=== PATIENT | male | born 1990 | race Hispanic/Latino ===

== ENCOUNTER 2016-07-12 11:50 | Emergency (ER) | payer OTHER ==
[2016-07-12] MEDS ORDERED: ONDANSETRON 4 MG ORAL DISINTEGRATING TAB (S0181) As Ordered ONE (12:08)
[2016-07-12] MEDS ORDERED: NORCO, ANEXSIA 5/325MG TABLET (HYDROcodone/ACETAMINOPHEN) As Ordered ONE (12:08)
--- NOTE | 2016-07-12 12:33 | REP ---
Clinical: Trauma. Technique: Internal rotation, external rotation. Findings: Midclavicular shaft fracture with displacement and foreshortening. The acromioclavicular and glenohumeral joints appear intact. Impression: Mid clavicular shaft fracture. Signed by Norman Crandall MD 07/12/2016 12:24 P
--- NOTE | 2016-07-12 12:46 | EDDOCDS ---
Physician Documentation [facility] Name: Dev Corey Age: 25 yrs Sex: Male : 1990 Arrival Date: 07/12/2016 Time: 11:50 Bed TR8 Private MD: Jim [facility] Disposition: 07/12/16 12:30 Discharged to Home/Self Care. Impression: Fracture of clavicle - Acute Closed, Initial encounter. - Condition is Stable. - Discharge Instructions: Clavicle Fracture. - Prescriptions for Ibuprofen 600 mg Oral Tablet - take 1 tablet by ORAL route every 6 hours As needed take with food; 30 tablet. [place] 5- 325 mg Oral Tablet - take 1 tablet by ORAL route every 6 hours As needed MDD: 4 tabs; 20 tablet. - Medication Reconciliation, Local Pharmacy Hours form. - Follow up: Shelia Castillo [facility]; When: 1 - 2 days; Reason: Continuance of care. Follow up: Emergency Department; When: As needed; Reason: Worsening of conditions. - Problem is new. - Symptoms have improved. Historical: - Allergies: no known allergies; - Home Meds: 1. none - PMHx: none; - PSHx: none; - Social history: Smoking status: Patient states was never smoker of tobacco. No barriers to communication noted, The patient speaks fluent Latvian, Speaks appropriately for age. - Family history: Not pertinent. - : The pt / caregiver states he / she is not on anticoagulants. Home medication list is obtained from the patient. - Exposure Risk Screening:: None identified. Vital Signs: 07/12 11:51 BP 164 / 75; Pulse 75; Resp 18; Temp 98.1(O); Pulse Ox 98% on R/A; Weight 81.65 kg / lr2 180.01 lbs (R); Height 5 ft. 9 in. (175.26 cm) (R); Pain 10/10; 12:39 BP 138 / 88; Pulse 68; Resp 18; Temp 98.5(O); Pulse Ox 96% on R/A; Pain 9/10; dem1 11:51 Body Mass Index 26.58 (81.65 kg, 175.26 cm) lr2 MDM: 12:06 HYDROcodone-acetaminophen 5 mg-325 mg 2 tabs PO once ordered. dk1 12:06 Ondansetron 4 mg PO once ordered. dk1 12:07 Shoulder, Complete Ordered. EDMS 12:07 NOTHING BY MOUTH+DIET ordered. EDMS 12:10 HYDROcodone-acetaminophen 5 mg-325 mg 2 tabs PO once ordered. ms18 12:21 Sling ordered. dk1 12:27 Financial registration complete. lg Administered Medications: 12:11 Drug: HYDROcodone-acetaminophen 2 tabs [hydrocodone 5 mg-acetaminophen 325 mg tablet (2 ms18 tabs)] Route: PO; 12:11 Drug: Ondansetron 4 mg [ondansetron HCl 4 mg tablet (1 tabs)] Route: PO; ms18 Signatures: Dispatcher MedHost EDMS Raquel Lujan, Reg Reg lg Dilan Lal, ELOISE PAChivo dk1 Maria L Martini,LASHAWN RN rs3 Karissa Pandey RN RN ms18 Lorrie Cuello,RN RN kc3 MTDD
--- NOTE | 2016-07-12 12:46 | EDDOCDS ---
Nurse's Notes [facility] Name: Dev Corey Age: 25 yrs Sex: Male : 1990 Arrival Date: 07/12/2016 Time: 11:50 Bed TR8 Private MD: Jim [facility] [place] Diagnosis: Fracture of clavicle-Acute Closed, Initial encounter Presentation: 07/12 11:57 Presenting complaint: Patient states: injury to right shoulder and collarbone while kc3 playing basketball after running into another player. Pt reports " I heard something crack.". Adult Sepsis Screening: The patient does not have new or worsening altered mentation. Patient's respiratory rate is less than 22. Systolic blood pressure is greater than 100. Patient has a qSOFA score of 0- Negative Sepsis Screen. Suicide/Homicide risk assessment- the patient denies having any suicidal and/or homicidal ideations and does not present with any other emotional, behavioral or mental health complaints. 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 Transition of care: patient was not received from another setting of care. 11:57 Acuity: BOLIVAR Level 3 kc3 11:57 Method Of Arrival: Walkin/Carried/Asstd kc3 Triage Assessment: 11:59 General: Appears uncomfortable, Behavior is appropriate for age, cooperative. Pain: kc3 Location: right clavicle and right shoulder Pain currently is 10 out of 10 on a pain scale. Pt Declines HIV testing. Respiratory: Respiratory effort is even, unlabored. Derm: Skin is pink, warm & dry. Musculoskeletal: Range of motion limited in right shoulder Reports pain in right shoulder. Historical: - Allergies: no known allergies; - Home Meds: 1. none - PMHx: none; - PSHx: none; - Social history: Smoking status: Patient states was never smoker of tobacco. No barriers to communication noted, The patient speaks fluent Filipino, Speaks appropriately for age. - Family history: Not pertinent. - : The pt / caregiver states he / she is not on anticoagulants. Home medication list is obtained from the patient. - Exposure Risk Screening:: None identified. Screenin:42 Screening information is obtained from the patient. Fall risk: No risks identified. rs3 Assistance ADL's: requires no assistance with activities of daily living. Abuse/DV Screen: The patient / caregiver reports he/she is: not in a situation that causes fear, pain or injury. There is an injury present, No other injuries are noted. Nutritional screening: No deficits noted. Advance Directives: Currently, there is no health care proxy. home support is adequate. Assessment: 12:42 General: Appears in no apparent distress, Behavior is appropriate for age, cooperative. rs3 Pain: Location: right shoulder. Neurological: Level of Consciousness is awake, alert. Cardiovascular: Capillary refill < 3 seconds Heart tones S1 S2 present. Respiratory: Airway is patent Respiratory effort is even, unlabored, Respiratory pattern is regular, symmetrical. Derm: Skin is pink, warm & dry. Vital Signs: 11:51 BP 164 / 75; Pulse 75; Resp 18; Temp 98.1(O); Pulse Ox 98% on R/A; Weight 81.65 kg (R); lr2 Height 5 ft. 9 in. (175.26 cm) (R); Pain 10/10; 12:39 BP 138 / 88; Pulse 68; Resp 18; Temp 98.5(O); Pulse Ox 96% on R/A; Pain 9/10; dem1 11:51 Body Mass Index 26.58 (81.65 kg, 175.26 cm) lr2 Vitals: 11:51 Log In Time: July 12, 2016 at 11:50. lr2 ED Course: 11:51 Patient visited by Katerine Perdue. lr2 11:51 Patient moved to Waiting lr2 11:[address] [facility] [place] is Private Physician. lr2 11:54 Patient moved to Pre RCE lr2 11:57 Patient moved to Triage 1 kc3 11:58 [facility] dk1 11:58 Ananth Camargo MD is Attending Physician. dk1 11:59 Triage Initiated kc3 12:00 Patient visited by Dilan Lal PA-C. dk1 12:08 Patient moved to I6 / 28 mlb1 12:12 Patient moved to Radiology dem1 12:19 Patient moved to I6 / 28 dem1 12:30 Shelia Castillo [facility] is Referral Physician. dk1 12:35 Patient visited by Silvia Goldberg. dem1 12:35 Sling applied to right arm. dem1 12:39 Patient visited by Silvia Goldberg. dem1 12:43 No IV's were initiated during this patient's visit. No procedures done that require rs3 assistance. 12:44 Patient moved to TR8 dem1 12:44 The patient / caregiver is instructed regarding the plan of care and ED course. rs3 Administered Medications: 12:11 Drug: HYDROcodone-acetaminophen 2 tabs [hydrocodone 5 mg-acetaminophen 325 mg tablet (2 ms18 tabs)] Route: PO; 12:11 Drug: Ondansetron 4 mg [ondansetron HCl 4 mg tablet (1 tabs)] Route: PO; ms18 Order Results: There are currently no results for this order. Outcome: 12:30 Discharge ordered by Provider. dk1 12:44 Discharge Assessment: patient administered narcotics - no. The following High Risk rs3 Discharge criteria are identified: None. Discharged to home with family. Condition: stable Condition: improved. Discharge instructions given to patient, Instructed on discharge instructions, follow up and referral plans. medication usage, Demonstrated understanding of instructions, medications, Pt was receptive of discharge instructions/ teaching. Prescriptions given X 2. No special radiology studies were completed. Property :Personal belongings accompany Pt. 12:45 Patient left the ED. rs3 Signatures: Jd Johnson RN RN mlb1 Dilan Lal, PA-C PA-C lesley1 Maria L Martini,RN RN rs3 Silvia Goldberg [facility] Karissa Pandey,LASHAWN RN ms18 Lorrie Cuello RN RN kc3 Katerine Perdue2 MTDD
--- NOTE | 2016-07-14 13:45 | EDDOCDS ---
Physician Documentation [facility] Name: Dev Corey Age: 25 yrs Sex: Male : 1990 Arrival Date: 07/12/2016 Time: 11:50 Bed TR8 Private MD: Jim [facility] Disposition: 07/12/16 12:30 Discharged to Home/Self Care. Impression: Fracture of clavicle - Acute Closed, Initial encounter. - Condition is Stable. - Discharge Instructions: Clavicle Fracture. - Prescriptions for Ibuprofen 600 mg Oral Tablet - take 1 tablet by ORAL route every 6 hours As needed take with food; 30 tablet. [place] 5- 325 mg Oral Tablet - take 1 tablet by ORAL route every 6 hours As needed MDD: 4 tabs; 20 tablet. - Medication Reconciliation, Local Pharmacy Hours form. - Follow up: Shelia Castillo [facility]; When: 1 - 2 days; Reason: Continuance of care. Follow up: Emergency Department; When: As needed; Reason: Worsening of conditions. - Problem is new. - Symptoms have improved. Historical: - Allergies: no known allergies; - Home Meds: 1. none - PMHx: none; - PSHx: none; - Social history: Smoking status: Patient states was never smoker of tobacco. No barriers to communication noted, The patient speaks fluent Divehi, Speaks appropriately for age. - Family history: Not pertinent. - : The pt / caregiver states he / she is not on anticoagulants. Home medication list is obtained from the patient. - Exposure Risk Screening:: None identified. Vital Signs: 07/12 11:51 BP 164 / 75; Pulse 75; Resp 18; Temp 98.1(O); Pulse Ox 98% on R/A; Weight 81.65 kg / lr2 180.01 lbs (R); Height 5 ft. 9 in. (175.26 cm) (R); Pain 10/10; 12:39 BP 138 / 88; Pulse 68; Resp 18; Temp 98.5(O); Pulse Ox 96% on R/A; Pain 9/10; dem1 11:51 Body Mass Index 26.58 (81.65 kg, 175.26 cm) lr2 MDM: 12:06 HYDROcodone-acetaminophen 5 mg-325 mg 2 tabs PO once ordered. dk1 12:06 Ondansetron 4 mg PO once ordered. dk1 12:07 Shoulder, Complete Ordered. EDMS 12:07 NOTHING BY MOUTH+DIET ordered. EDMS 12:10 HYDROcodone-acetaminophen 5 mg-325 mg 2 tabs PO once ordered. ms18 12:21 Sling ordered. dk1 12:27 Financial registration complete. lg 12:50 [facility] Payment Agreement was scanned into Eventtus and attached to record. lg 15:46 T-Sheet-- Draft Copy was scanned into Event[employer]us and attached to record. klr Administered Medications: 12:11 Drug: HYDROcodone-acetaminophen 2 tabs [hydrocodone 5 mg-acetaminophen 325 mg tablet (2 ms18 tabs)] Route: PO; 12:11 Drug: Ondansetron 4 mg [ondansetron HCl 4 mg tablet (1 tabs)] Route: PO; ms18 Signatures: Dispatcher MedHost EDMS Raquel Lujan, Jayson Reg lg Dilan Lal PA-C PA-C dk1 Maria L Martini RN RN rs3 Karissa Pandey RN RN ms18 Lorrie Cuello RN RN panda3 Sachi Castillo The chart was reviewed and I authenticate all verbal orders and agree with the evaluation and treatment provided.Attachments: 12:50 [facility] Payment Agreement lg 15:46 T-Sheet-- Draft Copy klr Chart Complete MTDD
--- NOTE | 2016-07-14 13:45 | EDDOCDS ---
Nurse's Notes [facility] Name: Dev Corey Age: 25 yrs Sex: Male : 1990 Arrival Date: 07/12/2016 Time: 11:50 Bed TR8 Private MD: Jim [facility] Diagnosis: Fracture of clavicle-Acute Closed, Initial encounter Presentation: 07/12 11:57 Presenting complaint: Patient states: injury to right shoulder and collarbone while kc3 playing basketball after running into another player. Pt reports " I heard something crack.". Adult Sepsis Screening: The patient does not have new or worsening altered mentation. Patient's respiratory rate is less than 22. Systolic blood pressure is greater than 100. Patient has a qSOFA score of 0- Negative Sepsis Screen. Suicide/Homicide risk assessment- the patient denies having any suicidal and/or homicidal ideations and does not present with any other emotional, behavioral or mental health complaints. 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 Transition of care: patient was not received from another setting of care. 11:57 Acuity: BOLIVAR Level 3 kc3 11:57 Method Of Arrival: Walkin/Carried/Asstd kc3 Triage Assessment: 11:59 General: Appears uncomfortable, Behavior is appropriate for age, cooperative. Pain: kc3 Location: right clavicle and right shoulder Pain currently is 10 out of 10 on a pain scale. Pt Declines HIV testing. Respiratory: Respiratory effort is even, unlabored. Derm: Skin is pink, warm & dry. Musculoskeletal: Range of motion limited in right shoulder Reports pain in right shoulder. Historical: - Allergies: no known allergies; - Home Meds: 1. none - PMHx: none; - PSHx: none; - Social history: Smoking status: Patient states was never smoker of tobacco. No barriers to communication noted, The patient speaks fluent Guyanese, Speaks appropriately for age. - Family history: Not pertinent. - : The pt / caregiver states he / she is not on anticoagulants. Home medication list is obtained from the patient. - Exposure Risk Screening:: None identified. Screenin:42 Screening information is obtained from the patient. Fall risk: No risks identified. rs3 Assistance ADL's: requires no assistance with activities of daily living. Abuse/DV Screen: The patient / caregiver reports he/she is: not in a situation that causes fear, pain or injury. There is an injury present, No other injuries are noted. Nutritional screening: No deficits noted. Advance Directives: Currently, there is no health care proxy. home support is adequate. Assessment: 12:42 General: Appears in no apparent distress, Behavior is appropriate for age, cooperative. rs3 Pain: Location: right shoulder. Neurological: Level of Consciousness is awake, alert. Cardiovascular: Capillary refill < 3 seconds Heart tones S1 S2 present. Respiratory: Airway is patent Respiratory effort is even, unlabored, Respiratory pattern is regular, symmetrical. Derm: Skin is pink, warm & dry. Vital Signs: 11:51 BP 164 / 75; Pulse 75; Resp 18; Temp 98.1(O); Pulse Ox 98% on R/A; Weight 81.65 kg (R); lr2 Height 5 ft. 9 in. (175.26 cm) (R); Pain 10/10; 12:39 BP 138 / 88; Pulse 68; Resp 18; Temp 98.5(O); Pulse Ox 96% on R/A; Pain 9/10; dem1 11:51 Body Mass Index 26.58 (81.65 kg, 175.26 cm) lr2 Vitals: 11:51 Log In Time: July 12, 2016 at 11:50. lr2 ED Course: 11:51 Patient visited by Katerine Perdue. lr2 11:51 Patient moved to Waiting lr2 11:54 Jim [facility] is Private Physician. lr2 11:54 Patient moved to Pre RCE lr2 11:57 Patient moved to Triage 1 kc3 11:58 [facility] dk1 11:58 Ananth Camargo MD is Attending Physician. dk1 11:59 Triage Initiated kc3 12:00 Patient visited by Dilan Lal PA-C. dk1 12:08 Patient moved to I6 / 28 mlb1 12:12 Patient moved to Radiology dem1 12:19 Patient moved to I6 / 28 dem1 12:30 Shelia Castillo [facility] is Referral Physician. dk1 12:35 Patient visited by Silvia Goldberg. dem1 12:35 Sling applied to right arm. dem1 12:39 Patient visited by Silvia Goldberg. dem1 12:43 No IV's were initiated during this patient's visit. No procedures done that require rs3 assistance. 12:44 Patient moved to TR8 dem1 12:44 The patient / caregiver is instructed regarding the plan of care and ED course. rs3 12:49 Patient name changed from Dev\\S\\\\S\\Madhav\\S\\ to Dev\\S\\ \\S\\Madhav. EDMS 12:50 [facility] [place] was scanned into [employer] and attached to record. lg 13:07 Shoulder, Complete Returned. EDMS 15:46 T-Sheet-- Draft Copy was scanned into Beat[employer] and attached to record. klr Administered Medications: 12:11 Drug: HYDROcodone-acetaminophen 2 tabs [hydrocodone 5 mg-acetaminophen 325 mg tablet (2 ms18 tabs)] Route: PO; 12:11 Drug: Ondansetron 4 mg [ondansetron HCl 4 mg tablet (1 tabs)] Route: PO; ms18 Order Results: Radiology Order: Shoulder, Complete Test: Shoulder, Complete REASON FOR EXAMINATION: Trauma; Clinical: Trauma.; ; Technique: Internal rotation, external rotation.; ; Findings:; Midclavicular shaft fracture with displacement and foreshortening. The; acromioclavicular and glenohumeral joints appear intact.; ; Impression:; Mid clavicular shaft fracture.; ; ; Signed by; Norman Crandall MD 07/12/2016 12:24 P; Outcome: 12:30 Discharge ordered by Provider. dk1 12:44 Discharge Assessment: patient administered narcotics - no. The following High Risk rs3 Discharge criteria are identified: None. Discharged to home with family. Condition: stable Condition: improved. Discharge instructions given to patient, Instructed on discharge instructions, follow up and referral plans. medication usage, Demonstrated understanding of instructions, medications, Pt was receptive of discharge instructions/ teaching. Prescriptions given X 2. No special radiology studies were completed. Property :Personal belongings accompany Pt. 12:45 Patient left the ED. rs3 Signatures: Dispatcher MedHo EDMS Tai Groversarai, Jayson Reg lg Jd Johnson RN RN mlb1 Dilan Lal, PAChandaC PA-C lesley1 Maria L Martini RN RN rs3 Silvia Goldberg [facility]1 Karissa Pandey RN RN ms18 Lorrie Cuello RN RN kc3 Sachi Castillo Laura lr2 Chart Complete MTDD
--- NOTE | 2016-07-14 13:45 | EDDOCDS ---
Physician Documentation [facility] Name: Dev Corey Age: 25 yrs Sex: Male : 1990 Arrival Date: 07/12/2016 Time: 11:50 Bed TR8 Private MD: [place] [facility] [place]: 07/12/16 12:30 Discharged to Home/Self Care. Impression: Fracture of clavicle - Acute Closed, Initial encounter. - Condition is Stable. - Discharge Instructions: Clavicle Fracture. - Prescriptions for Ibuprofen 600 mg Oral Tablet - take 1 tablet by ORAL route every 6 hours As needed take with food; 30 tablet. [place] 5- 325 mg Oral Tablet - take 1 tablet by ORAL route every 6 hours As needed MDD: 4 tabs; 20 tablet. - Medication Reconciliation, Local Pharmacy Hours form. - Follow up: Shelia Castillo [facility]; When: 1 - 2 days; Reason: Continuance of care. Follow up: Emergency Department; When: As needed; Reason: Worsening of conditions. - Problem is new. - Symptoms have improved. Historical: - Allergies: no known allergies; - Home Meds: 1. none - PMHx: none; - PSHx: none; - Social history: Smoking status: Patient states was never smoker of tobacco. No barriers to communication noted, The patient speaks fluent Yakut, Speaks appropriately for age. - Family history: Not pertinent. - : The pt / caregiver states he / she is not on anticoagulants. Home medication list is obtained from the patient. - Exposure Risk Screening:: None identified. Vital Signs: 07/12 11:51 BP 164 / 75; Pulse 75; Resp 18; Temp 98.1(O); Pulse Ox 98% on R/A; Weight 81.65 kg / lr2 180.01 lbs (R); Height 5 ft. 9 in. (175.26 cm) (R); Pain 10/10; 12:39 BP 138 / 88; Pulse 68; Resp 18; Temp 98.5(O); Pulse Ox 96% on R/A; Pain 9/10; dem1 11:51 Body Mass Index 26.58 (81.65 kg, 175.26 cm) lr2 MDM: 12:06 HYDROcodone-acetaminophen 5 mg-325 mg 2 tabs PO once ordered. dk1 12:06 Ondansetron 4 mg PO once ordered. dk1 12:07 Shoulder, Complete Ordered. EDMS 12:07 NOTHING BY MOUTH+DIET ordered. EDMS 12:10 HYDROcodone-acetaminophen 5 mg-325 mg 2 tabs PO once ordered. ms18 12:21 Sling ordered. dk1 12:27 Financial registration complete. lg 12:50 [facility] Payment Agreement was scanned into mySu[employer] and attached to record. lg 15:46 T-Sheet-- Draft Copy was scanned into mySugr and attached to record. klr Administered Medications: 12:11 Drug: HYDROcodone-acetaminophen 2 tabs [hydrocodone 5 mg-acetaminophen 325 mg tablet (2 ms18 tabs)] Route: PO; 12:11 Drug: Ondansetron 4 mg [ondansetron HCl 4 mg tablet (1 tabs)] Route: PO; ms18 Signatures: Dispatcher MedHost EDMS Raquel uLjan, Jayson Reg lg Dilan Lal PA-C PA-C dk1 Maria L Martini RN RN rs3 Karissa Pandey RN RN ms18 Lorrie Cuello RN RN panda3 Sachi Castillo The chart was reviewed and I authenticate all verbal orders and agree with the evaluation and treatment provided.Attachments: 12:50 [facility] Payment Agreement lg 15:46 T-Sheet-- Draft Copy klr Chart Complete MTDD
== END 2016-07-12 12:45 | disposition home or self-care (01) ==
LOC: M ED 11:50
DX: S42.001A Fracture of unspecified part of right clavicle, initial encounter for closed fracture (principal); X58.XXXA Exposure to other specified factors, initial encounter; Y92.9 Unspecified place or not applicable; Y93.9 Activity, unspecified; Y99.9 Unspecified external cause status